=== PATIENT | male | born 1975 | race Caucasian/White ===

== ENCOUNTER 2022-11-11 00:59 | Observation (INO) ==
[2022-11-11] MEDS ORDERED: SODIUM CHLORIDE 0.9% 1000ML 1,000 ML IV ONE (01:12)
[2022-11-11] MEDS ORDERED: ASPIRIN CHEW 324 MG PO STA (01:16)
--- NOTE | 2022-11-11 01:16 | Emergency Department Note ---
History of Present Illness General Chief complaint: Chest Pain Stated complaint: CHEST PAIN Time Seen by Provider: 11/11/22 01:07 History of Present Illness Maximum Pain Intensity: 2 47-year-old male presents emergency department states a sudden onset of chest pressure and tightness on the left side of his chest that radiated to his left arm while at rest. Patient states he had not slept since 430 yesterday morning. Patient does admit to having 3 beers this evening. Patient's significant other states that he appeared to not be the evening. Patient denies cardiac history denies hypertension, states that he feels generally fatigued currently. Patient denies pleuritic chest pain denies hemoptysis denies recent fever denies cough cold congestion symptoms. Home Medications Medication Instructions Recorded Confirmed Type No Known Home Medications 11/11/22 11/11/22 History Allergies Allergy/AdvReac Type Severity Reaction Status Date / Time prednisone AdvReac Severe HEART RACES Verified 11/11/22 01:44 Past Med/Surg History Medical History No pertinent past medical history Social History Smoking Status: Never smoker Preferred Language: Sinhala Feels Safe at Home: Yes Immunizations: Past medical history denies; social history positive for alcohol Review of Systems A total of 10 systems reviewed and were otherwise negative Cardiovascular: + chest pain Gastrointestinal: no abdominal pain Physical Exam Vital Signs Vital Signs - 24 hr 11/11/22 01:04 11/11/22 00:59 11/11/22 01:07 Temperature 36.7 C Temperature Source Temporal Artery Scan Pulse Rate 127 H 122 H Pulse Rate from SpO2 Sensor Respiratory Rate 18 22 Respiratory Effort / Characteristics Non-Labored Spontaneous Respiratory Depth Normal Respiratory Pattern Regular Blood Pressure 182/121 H Blood Pressure Mean 141 Pulse Oximetry 96 95 96 Oxygen Delivery Method Room Air Room Air Room Air Sepsis Recent Fever Within 48 Hours No Sepsis New/Unexplained Change in Mental Status No Sepsis Action Taken by Nursing No Action Required 11/11/22 01:13 11/11/22 01:30 11/11/22 01:37 Temperature Temperature Source Pulse Rate 128 H 120 H 122 H Pulse Rate from SpO2 Sensor 128 H 121 H 123 H Respiratory Rate 22 12 22 Respiratory Effort / Characteristics Respiratory Depth Respiratory Pattern Blood Pressure 207/113 H 179/101 H 188/115 H Blood Pressure Mean 144 127 139 Pulse Oximetry 95 96 95 Oxygen Delivery Method Sepsis Recent Fever Within 48 Hours Sepsis New/Unexplained Change in Mental Status Sepsis Action Taken by Nursing 11/11/22 02:00 11/11/22 02:10 11/11/22 02:20 Temperature Temperature Source Pulse Rate 119 H 116 H 113 H Pulse Rate from SpO2 Sensor 119 H 116 H 112 H Respiratory Rate 20 21 20 Respiratory Effort / Characteristics Respiratory Depth Respiratory Pattern Blood Pressure 177/95 H Blood Pressure Mean 122 Pulse Oximetry 95 94 95 Oxygen Delivery Method Sepsis Recent Fever Within 48 Hours Sepsis New/Unexplained Change in Mental Status Sepsis Action Taken by Nursing 11/11/22 02:30 11/11/22 03:10 Temperature Temperature Source Pulse Rate 115 H 113 H Pulse Rate from SpO2 Sensor 115 H 114 H Respiratory Rate 22 8 L Respiratory Effort / Characteristics Respiratory Depth Respiratory Pattern Blood Pressure 150/100 H 176/114 H Blood Pressure Mean 116 134 Pulse Oximetry 96 94 Oxygen Delivery Method Sepsis Recent Fever Within 48 Hours Sepsis New/Unexplained Change in Mental Status Sepsis Action Taken by Nursing GENERAL: Patient is awake alert in no acute distress patient is resting comfortably and showing no signs of anxiety EYES: The conjunctivae are clear. The pupils are round and reactive. EARS, NOSE, MOUTH AND THROAT: The nose is without any evidence of any deformity. Mucous membranes are moist. Tongue is midline. NECK: The neck is nontender and supple. RESPIRATORY: Normal respiratory effort is noted there is no evidence of wheezing rhonchi or rales CARDIOVASCULAR: Tachycardic GASTROINTESTINAL: The abdomen is soft. Abdomen is nontender. BACK: No midline tenderness or or step-off noted range of motion in flexion extension as well as rotation no signs of muscle spasm noted MUSCULOSKELETAL/EXTREMITIES: There is no evidence of gross deformity full range of motion is noted in the hips and shoulders. SKIN: There is no obvious evidence of any rash. There are no petechiae, pallor or cyanosis noted. Mild diaphoresis present NEUROLOGIC: Patient is awake alert and oriented x3 strength is symmetric patellar reflexes are 2+ bilaterally PSYCH: Normal affect Course Reevaluation(s) Reevaluation #1: Patient started on IV fluids, patient remains tachycardic and hypertensive, patient was given IV hydralazine, aspirin Time: 03:05 Consultations Consultation #1: Case was discussed with the [facility] hospitalist for admission for h ypertension and chest pain Time: 03:39 Administered Medications Discontinued Medications Aspirin (Aspirin Chew 324 Mg) 324 mg PO NOW STA Stop: 11/11/22 01:17 Last Admin: 11/11/22 01:41 Dose: Not Given Documented By: JANNET Hydralazine HCl (Hydralazine Hcl 20 Mg/Ml Vial) 10 mg IV NOW STA Stop: 11/11/22 02:58 Last Admin: 11/11/22 03:15 Dose: 10 mg Documented By: JANNET Sodium Chloride (Nss 1000ml) 1,000 mls @ 999 mls/hr IV .Q1H1M ONE Stop: 11/11/22 02:12 Last Infusion: 11/11/22 03:10 Dose: 0 mls/hr Documented By: Admin: 11/11/22 01:40 Dose: 999 mls/hr Documented By: JANNET Critical Care Time Critical Care Time: Yes Total Critical Care Time: 35 I have personally spent greater than 35 minutes of critical care time in the direct management of this patient. This includes bedside care, interpretation of diagnostic studies, and testing, discussion with consultants, patient, and family members, and other required patient management activities. These minutes are in excess of all separately billable procedures. Medical Decision Making Medical Records Attestation: I reviewed the patient's medical records. Home Medications Current Medication List: was personally reviewed by me Laboratory Data Attestation: I reviewed the patient's lab results. Patient's labs are unremarkable 11/11/22 01:18 11/11/22 01:18 Lab Results 11/11/22 11/11/22 11/11/22 Range/Units 01:18 01:18 01:18 WBC 8.32 (4.8-10.8) K/ul RBC 5.37 (4.70-6.10) M/uL Hgb 17.6 (14.0-18.0) g/dl Hct 46.7 (42.0-52.0) % MCV 87.0 (80.0-100.0) fL MCH 32.8 (25.0-34.0) pg MCHC 37.7 H (32.0-36.0) g/dL RDW Std Deviation 39.0 (36.4-46.3) fL RDW Coeff of Gopi 12.4 (11.5-14.5) % Plt Count 236 (130-400) K/uL MPV 9.8 (9.4-12.4) fL Immature Gran % (Auto) 0.7 % Neut % (Auto) 46.8 % Lymph % (Auto) 33.1 % [place] % (Auto) 10.0 % Eos % (Auto) 8.4 % Baso % (Auto) 1.0 % Neut # (Auto) 3.90 (1.40-6.50) K/uL Lymph # (Auto) 2.75 (1.2-3.4) K/uL [place] # (Auto) 0.83 H (0.11-0.59) K/uL Eos # (Auto) 0.70 H (0-0.50) K/uL Baso # (Auto) 0.08 (0-0.2) K/uL Immature Gran # (Auto) 0.06 (0.01-0.20) K/uL PT 9.8 (9.0-12.0) Seconds INR 0.9 (0.9-1.1) APTT 24.8 (21.0-31.0) Seconds PTT Ratio 0.9 D-Dimer (0-500) ug/L FEU Sodium 135 L (136-145) mmol/L Potassium TNP Chloride 100 (98-107) mmol/L Carbon Dioxide 24 (21-32) mmol/L Anion Gap 11 (3-11) BUN 25 H (6-23) mg/dl Creatinine 1.30 (0.6-1.4) mg/dl Est Cr Clr Drug Dosing 71.4 ml/min Est GFR ( Amer) 75.3 ml/min Est GFR (Non-Af Amer) 65.0 ml/min BUN/Creatinine Ratio 19.2 (10-20) Glucose 121 H (70-99(Fasting)) mg/dl Calcium 9.4 (8.5-10.1) mg/dl Total Bilirubin 0.6 (0.2-1.0) mg/dl AST TNP ALT 47 (7-52) U/L Alkaline Phosphatase 48 (34-104) U/L Troponin I High Sens 4.8 (0-20) pg/ml Total Protein 8.4 H (6.0-8.3) gm/dl Albumin 4.7 (3.4-5.0) gm/dl Globulin 3.7 (2.5-4.0) gm/dl Albumin/Globulin Ratio 1.3 (0.9-2) Ethyl Alcohol mg/dL (<10.0) mg/dl SARS-CoV-2, RNA, NAAT (NEGATIVE) 11/11/22 11/11/22 11/11/22 Range/Units 01:18 01:18 02:58 WBC (4.8-10.8) K/ul RBC (4.70-6.10) M/uL Hgb (14.0-18.0) g/dl Hct (42.0-52.0) % MCV (80.0-100.0) fL MCH (25.0-34.0) pg MCHC (32.0-36.0) g/dL RDW Std Deviation (36.4-46.3) fL RDW Coeff of Gopi (11.5-14.5) % Plt Count (130-400) K/uL MPV (9.4-12.4) fL Immature Gran % (Auto) % Neut % (Auto) % Lymph % (Auto) % [place] % (Auto) % Eos % (Auto) % Baso % (Auto) % Neut # (Auto) (1.40-6.50) K/uL Lymph # (Auto) (1.2-3.4) K/uL [place] # (Auto) (0.11-0.59) K/uL Eos # (Auto) (0-0.50) K/uL Baso # (Auto) (0-0.2) K/uL Immature Gran # (Auto) (0.01-0.20) K/uL PT (9.0-12.0) Seconds INR (0.9-1.1) APTT (21.0-31.0) Seconds PTT Ratio D-Dimer < 190 (0-500) ug/L FEU Sodium (136-145) mmol/L Potassium Cancelled Chloride (98-107) mmol/L Carbon Dioxide (21-32) mmol/L Anion Gap (3-11) BUN (6-23) mg/dl Creatinine (0.6-1.4) mg/dl Est Cr Clr Drug Dosing ml/min Est GFR ( Amer) ml/min Est GFR (Non-Af Amer) ml/min BUN/Creatinine Ratio (10-20) Glucose (70-99(Fasting)) mg/dl Calcium (8.5-10.1) mg/dl Total Bilirubin (0.2-1.0) mg/dl AST Cancelled ALT (7-52) U/L Alkaline Phosphatase (34-104) U/L Troponin I High Sens (0-20) pg/ml Total Protein (6.0-8.3) gm/dl Albumin (3.4-5.0) gm/dl Globulin (2.5-4.0) gm/dl Albumin/Globulin Ratio (0.9-2) Ethyl Alcohol mg/dL < 10.0 (<10.0) mg/dl SARS-CoV-2, RNA, NAAT (NEGATIVE) 11/11/22 Range/Units 03:20 WBC (4.8-10.8) K/ul RBC (4.70-6.10) M/uL Hgb (14.0-18.0) g/dl Hct (42.0-52.0) % MCV (80.0-100.0) fL MCH (25.0-34.0) pg MCHC (32.0-36.0) g/dL RDW Std Deviation (36.4-46.3) fL RDW Coeff of Gopi (11.5-14.5) % Plt Count (130-400) K/uL MPV (9.4-12.4) fL Immature Gran % (Auto) % Neut % (Auto) % Lymph % (Auto) % [place] % (Auto) % Eos % (Auto) % Baso % (Auto) % Neut # (Auto) (1.40-6.50) K/uL Lymph # (Auto) (1.2-3.4) K/uL [place] # (Auto) (0.11-0.59) K/uL Eos # (Auto) (0-0.50) K/uL Baso # (Auto) (0-0.2) K/uL Immature Gran # (Auto) (0.01-0.20) K/uL PT (9.0-12.0) Seconds INR (0.9-1.1) APTT (21.0-31.0) Seconds PTT Ratio D-Dimer (0-500) ug/L FEU Sodium (136-145) mmol/L Potassium Chloride (98-107) mmol/L Carbon Dioxide (21-32) mmol/L Anion Gap (3-11) BUN (6-23) mg/dl Creatinine (0.6-1.4) mg/dl Est Cr Clr Drug Dosing ml/min Est GFR ( Amer) ml/min Est GFR (Non-Af Amer) ml/min BUN/Creatinine Ratio (10-20) Glucose (70-99(Fasting)) mg/dl Calcium (8.5-10.1) mg/dl Total Bilirubin (0.2-1.0) mg/dl AST ALT (7-52) U/L Alkaline Phosphatase (34-104) U/L Troponin I High Sens (0-20) pg/ml Total Protein (6.0-8.3) gm/dl Albumin (3.4-5.0) gm/dl Globulin (2.5-4.0) gm/dl Albumin/Globulin Ratio (0.9-2) Ethyl Alcohol mg/dL (<10.0) mg/dl SARS-CoV-2, RNA, NAAT NEGATIVE (NEGATIVE) Imaging Data Attestation: I personally reviewed and interpreted this imaging study as follows: My Impression: Chest x-ray interpreted by me negative for infiltrate normal mediastinum ECG Data Attestation: I personally reviewed and interpreted this ECG as follows: Additional Comments: EKG interpreted by me sinus tachycardia rate of 129 normal intervals normal axis poor R wave progression in the precordium. There is no obvious ST segment elevation or depression Blood Pressure Blood Pressure Findings: Elevated blood pressure MDM Narrative Medical decision making differential diagnosis includes angina, unstable angina, acute coronary syndrome, acute DE, dehydration, electrolyte abnormality Plan is to check labs, EKG, give IV fluids, asa Patient's EKG is nonischemic but tachycardic, patient's labs are unremarkable, patient remained hypertensive, patient was given IV hydralazine, patient will be admitted for chest pain with hypertension Heart score is moderate Case was discussed with the [facility] hospitalist for admission due to high risk due to hypertension and chest pain Impression & Plan Chest pain, Hypertensive urgency Discharge Plan Visit Data Chief Complaint: Chest Pain Stated Complaint: CHEST PAIN ED Provider: Clare,Tank M. Discharge Problem: Chest pain, Hypertensive urgency Patient Disposition: Admitted As Inpatient Forms Stand Alone Forms: [facility] Prescriptions Prescriptions: No Action No Known Home Medications Referrals Referrals: Cole Piña MD [Primary Care Provider] -
[2022-11-11 01:39] LABS: Basophils # (auto) 0.08 K/uL (0-0.2); Eosinophils % (auto) 8.4 %; Hematocrit (blood only) 46.7 % (42.0-52.0); Hemoglobin 17.6 g/dl (14.0-18.0); Immature Granulocytes # (auto) 0.06 K/uL (0.01-0.20); Immature Granulocytes % (auto) 0.7 %; Lymphocytes # (auto) 2.75 K/uL (1.2-3.4); Lymphocytes % (auto) 33.1 %; Mean Corpuscular Hemoglobin 32.8 pg (25.0-34.0); Mean Corpuscular Hgb Conc 37.7 g/dL (32.0-36.0); Mean Platelet Volume 9.8 fL (9.4-12.4); Monocytes # (auto) 0.83 K/uL (0.11-0.59); Neutrophils % (auto) 46.8 %; Platelet Count 236 K/uL (130-400); RDW Coefficient of Variation 12.4 % (11.5-14.5); Red Blood Count 5.37 M/uL (4.70-6.10); White Blood Count 8.32 K/ul (4.8-10.8)
[2022-11-11 02:45] LABS: Alanine Aminotransferase 47 U/L (7-52); Albumin Globulin Ratio 1.3 (0.9-2); Albumin Level 4.7 gm/dl (3.4-5.0); Alkaline Phosphatase 48 U/L (34-104); Anion Gap 11 (3-11); BUN Creatinine Ratio 19.2 (10-20); Bilirubin,Total 0.6 mg/dl (0.2-1.0); Blood Urea Nitrogen 25 mg/dl (6-23); Calcium 9.4 mg/dl (8.5-10.1); Carbon Dioxide 24 mmol/L (21-32); Chloride 100 mmol/L (98-107); Creatinine Clr Calc Pharmacy 71.4 ml/min; Est GFR (African American) 75.3 ml/min; Globulin 3.7 gm/dl (2.5-4.0); Glucose 121 mg/dl (70-99(Fasting)); Sodium 135 mmol/L (136-145); Total Protein 8.4 gm/dl (6.0-8.3); Troponin I High Sensitivity 4.8 pg/ml (0-20)
[2022-11-11 02:48] LABS: INR 0.9 (0.9-1.1); Partial Thromboplastin Ratio 0.9; Partial Thromboplastin Time 24.8 Seconds (21.0-31.0); Prothrombin Time 9.8 Seconds (9.0-12.0)
[2022-11-11] MEDS ORDERED: hydrALAZINE HCL 20 MG/ML VIAL IV STA (02:57)
[2022-11-11 03:36] LABS: D Dimer < 190 ug/L FEU (0-500)
--- NOTE | 2022-11-11 03:36 | History & Physical Report ---
Date of Service November 11, 2022 Assessment & Plan (1) Chest pain: Plan: 47-year-old male with no significant past medical history presenting with episode of substernal chest tightness associated with tachycardia and elevated blood pressure. Symptoms have since resolved. Patient does report he feels anxious at present. States he does not have a diagnosis of hypertension although his blood pressure has been high on previous readings. He is active with no exertional symptoms Observation to medical with telemetry EKG Repeat troponin Lipid panel and hemoglobin A1c with next blood draw (2) Hypertensive urgency: Plan: Patient with elevated blood pressure. Asymptomatic. Improved after hydralazine 10 mg IV x1 dose. Etiology unclear. Monitor blood pressure if persistently elevated will need to initiate medications Check TSH, lipid panel and hemoglobin A1c (3) Tachycardia: Plan: Sinus tachycardia. Patient does report feeling anxious. Pain has resolved, he is saturating well on room air, no anemia Check TSH Fluid administered Hydroxyzine as needed for anxiety Continue to monitor History of Present Illness Chief Complaint: Chest pressure Primary Care Provider: Cole Piña MD Ryan Black is a 48-year-old male with no significant past medical history presenting with episode of chest tightness. At midnight tonight patient was trying to go to sleep when he became flushed and warm. He developed palpitations in the chest as well as substernal chest tightness and diaphoresis. He denies shortness of breath, abdominal pain, nausea, vomiting. Denies back pain, headache, visual change, focal numbness or weakness. He feels very anxious now. Patient did drink 2-3 alcoholic beverages tonight. He also ate dinner at [employer] He said that he had some chips that were very salty. He does state that he is very sensitive to salt. Had a similar feeling of chest tightness and flushing after eating at [employer] in the past. In the ER patient tachycardic and hypertensive with heart rate 120s, blood pressure ranging [id number] ER course: Hydralazine 10 mg IV Normal saline x1 L Allergies Allergy/AdvReac Type Severity Reaction Status Date / Time prednisone AdvReac Severe HEART RACES Verified 11/11/22 01:44 Home Medications Medication Instructions Recorded Confirmed Type No Known Home Medications 11/11/22 11/11/22 History Past Med/Surg History Medical History (Updated 11/11/22 @ 04:54 by Joie Terrazas DO) No pertinent past medical history Surgical History (Updated 11/11/22 @ 04:50 by Joie Terrazas DO) History of shoulder surgery Family History (Updated 11/11/22 @ 04:50 by Joie Terrazas DO) Other Cancer Social History (Updated 11/11/22 @ 04:50 by Joie Terrazas DO) Smoking Status: Never smoker Hx Alcohol Use: Yes Alcohol type: beer Hx Substance Use: No Preferred Language: Upper Sorbian Communication Ability: Effective Gang Punch Operator Required: No Beliefs That Will Affect Care: None Current Living Situation: Spouse and Family Other Information That Helps Us Care for You: No Feels Safe at Home: Yes Safety Concerns: Feels Safe At This Time Assistive Devices: None Review of Systems Review of Systems: All systems reviewed & are unremarkable except as noted in HPI & below Physical Exam Physical Exam: General: patient anxious, NAD, non-toxic in appearance, AA&O x 4 Skin: warm, dry, intact, no rashes or lesions HEENT: NC/AT, PERRL, EOMI, anicteric sclera, conjunctiva without injection, external ear normal to inspection and nontender, nares patent, moist mucus membranes, dentition intact, no oropharyngeal lesions, neck supple, trachea midline, no LAD, no thyromegaly, no JVD Heart: +S1/S2, regular, tachycardic no m/r/g Lungs: equal air entry bilaterally, no rales/rhonchi/wheezes Abd: +BS, soft, NT/ND, no masses/organomegaly/ascites Ext: warm, 2+ pulses in UE/LE bilaterally, no clubbing/cyanosis or edema Neuro: nonfocal, patient AA&O x 4, speech intact, no facial droop, moving all extremities on command with equal strength 5/5 Results & Data Results & Data ([facility]) Vital Signs (Past 12 Hours) Vital Signs Temp Pulse Resp BP Pulse Ox O2 Del Method 11/11/22 03:10 113 H 8 L 176/114 H 94 11/11/22 02:30 115 H 22 150/100 H 96 11/11/22 02:20 113 H 20 95 11/11/22 02:10 116 H 21 94 11/11/22 02:00 119 H 20 177/95 H 95 11/11/22 01:37 122 H 22 188/115 H 95 11/11/22 01:30 120 H 12 179/101 H 96 11/11/22 01:13 128 H 22 207/113 H 95 11/11/22 01:07 122 H 22 96 Room Air 11/11/22 00:59 95 Room Air 11/11/22 01:04 36.7 C 127 H 18 182/121 H 96 Room Air Laboratory Results Laboratory Results WBC 8.32 K/ul (4.8-10.8) 11/11/22 01:18 RBC 5.37 M/uL (4.70-6.10) 11/11/22 01:18 Hgb 17.6 g/dl (14.0-18.0) 11/11/22 01:18 Hct 46.7 % (42.0-52.0) 11/11/22 01:18 MCV 87.0 fL (80.0-100.0) 11/11/22 01:18 MCH 32.8 pg (25.0-34.0) 11/11/22 01:18 MCHC 37.7 g/dL (32.0-36.0) H 11/11/22 01:18 RDW Std Deviation 39.0 fL (36.4-46.3) 11/11/22 01:18 RDW Coeff of Gopi 12.4 % (11.5-14.5) 11/11/22 01:18 Plt Count 236 K/uL (130-400) 11/11/22 01:18 MPV 9.8 fL (9.4-12.4) 11/11/22 01:18 Immature Gran % (Auto) 0.7 % 11/11/22 01:18 Neut % (Auto) 46.8 % 11/11/22 01:18 Lymph % (Auto) 33.1 % 11/11/22 01:18 [place] % (Auto) 10.0 % 11/11/22 01:18 Eos % (Auto) 8.4 % 11/11/22 01:18 Baso % (Auto) 1.0 % 11/11/22 01:18 Neut # (Auto) 3.90 K/uL (1.40-6.50) 11/11/22 01:18 Lymph # (Auto) 2.75 K/uL (1.2-3.4) 11/11/22 01:18 [place] # (Auto) 0.83 K/uL (0.11-0.59) H 11/11/22 01:18 Eos # (Auto) 0.70 K/uL (0-0.50) H 11/11/22 01:18 Baso # (Auto) 0.08 K/uL (0-0.2) 11/11/22 01:18 Immature Gran # (Auto) 0.06 K/uL (0.01-0.20) 11/11/22 01:18 PT 9.8 Seconds (9.0-12.0) 11/11/22 01:18 INR 0.9 (0.9-1.1) 11/11/22 01:18 APTT 24.8 Seconds (21.0-31.0) 11/11/22 01:18 PTT Ratio 0.9 11/11/22 01:18 D-Dimer < 190 ug/L FEU (0-500) 11/11/22 01:18 Sodium 135 mmol/L (136-145) L 11/11/22 01:18 Potassium Cancelled 11/11/22 02:58 Chloride 100 mmol/L (98-107) 11/11/22 01:18 Carbon Dioxide 24 mmol/L (21-32) 11/11/22 01:18 Anion Gap 11 (3-11) 11/11/22 01:18 BUN 25 mg/dl (6-23) H 11/11/22 01:18 Creatinine 1.30 mg/dl (0.6-1.4) 11/11/22 01:18 Est Cr Clr Drug Dosing 71.4 ml/min 11/11/22 01:18 Est GFR ( Amer) 75.3 ml/min 11/11/22 01:18 Est GFR (Non-Af Amer) 65.0 ml/min 11/11/22 01:18 BUN/Creatinine Ratio 19.2 (10-20) 11/11/22 01:18 Glucose 121 mg/dl (70-99(Fasting)) H 11/11/22 01:18 Calcium 9.4 mg/dl (8.5-10.1) 11/11/22 01:18 Total Bilirubin 0.6 mg/dl (0.2-1.0) 11/11/22 01:18 AST Cancelled 11/11/22 02:58 ALT 47 U/L (7-52) 11/11/22 01:18 Alkaline Phosphatase 48 U/L (34-104) 11/11/22 01:18 Troponin I High Sens 4.8 pg/ml (0-20) 11/11/22 01:18 Total Protein 8.4 gm/dl (6.0-8.3) H 11/11/22 01:18 Albumin 4.7 gm/dl (3.4-5.0) 11/11/22 01:18 Globulin 3.7 gm/dl (2.5-4.0) 11/11/22 01:18 Albumin/Globulin Ratio 1.3 (0.9-2) 11/11/22 01:18 Ethyl Alcohol mg/dL < 10.0 mg/dl (<10.0) 11/11/22 01:18 SARS-CoV-2, RNA, NAAT NEGATIVE (NEGATIVE) 11/11/22 03:20 Diagnostic Findings Chest x-rayby my interpretation. Poor inspiratory film, no obvious infiltrate or edema Code Status & VTE Plan VTE Prophylaxis Plan VTE Prophylaxis will be ordered: Yes PG Care Time/CCT Total # of Minutes Spent Total Time Spent with Patient: Total time spent is greater than 50% in coordination of care (as documented) at patient's floor/unit and/or counseling patient: Coding Level of Care Code 59575 INT INP/OBS CARE 2/55MIN Diagnoses Chest pain R07.9 Hypertensive urgency I16.0 Tachycardia R00.0
[2022-11-11] MEDS ORDERED: hydrOXYzine HCl 25 MG TAB PO PRN (04:39)
[2022-11-11] MEDS ORDERED: ACETAMINOPHEN 325 MG TAB PO PRN (04:39)
[2022-11-11] MEDS ORDERED: cloNIDine HCL 0.1 MG TAB PO ONE (05:06)
[2022-11-11 05:08] LABS: Potassium 4.6 mmol/L (3.5-5.1)
[2022-11-11 06:13] LABS: Chol HDL Ratio 6.7 (0-5); Cholesterol 282 mg/dl (0-200); HDL Cholesterol 42 mg/dl; LDL Cholesterol Calculated 170 mg/dl; Triglycerides 351 mg/dl (0-150); Troponin I High Sensitivity 4.8 pg/ml (0-20); VLDL Cholesterol 70 mg/dl (0-30)
--- NOTE | 2022-11-11 06:58 | XRay Report ---
XR chest 1V portable HISTORY: Chest pain, nonspecific COMPARISON: Chest 09/14/2021. FINDINGS: The lungs are clear. Cardiac silhouette is normal in size. No pleural effusions. No pneumot horax. IMPRESSION: No acute process. ACT 112: Negative or not required by law. Electronically signed by: Harshad Bishop M.D. 11/11/2022 6:57 AM
[2022-11-11] MEDS ORDERED: SODIUM PHOSPHATE 3 MMOL/1 ML INFUSION IV STA (08:16)
[2022-11-11] MEDS ORDERED: SODIUM PHOSPHATE 9 MMOL in SODIUM CHLORIDE 0.9% 250 ML IV ONE (08:30)
--- NOTE | 2022-11-11 14:03 | XCELERA ---
[id number]
--- NOTE | 2022-11-11 15:39 | Discharge Summary ---
Date of Service November 11, 2022 Admission HPI Per Admitting Provider Ryan Black is a 48-year-old male with no significant past medical history presenting with episode of chest tightness. At midnight tonight patient was trying to go to sleep when he became flushed and warm. He developed palpitations in the chest as well as substernal chest tightness and diaphoresis. He denies shortness of breath, abdominal pain, nausea, vomiting. Denies back pain, headache, visual change, focal numbness or weakness. He feels very anxious now. Patient did drink 2-3 alcoholic beverages tonight. He also ate dinner at [employer]. He said that he had some chips that were very salty. He does state that he is very sensitive to salt. Had a similar feeling of chest tightness and flushing after eating at [employer] in the past. In the ER patient tachycardic and hypertensive with heart rate 120s, blood pressure ranging [id number] ER course: Hydralazine 10 mg IV Normal saline x1 L Principal Diagnosis Hypertensive urgency Chest pain Sinus tachycardia Discharge Exam Vitals reviewed Gen: [AAOx3, NAD,obese] HEENT: [anicteric sclerae, EOMI] CV: [Reg rhythm, mild tachycardia in low 100s no mgr nl S1S2] Pulm: [CTAB no wcr] Abd: [+BS soft NT ND no masses or hernias] Ext: [no edema, 2+ DP pulses] Skin: [no rashes, warm/dry] Neuro: [full strength throughout] Discharge Data Allergies Allergy/AdvReac Type Severity Reaction Status Date / Time prednisone AdvReac Severe HEART RACES Verified 11/11/22 01:44 Consultations 11/11/22 03:31 ED Decision to Admit Stat Hospital Course (1) Chest pain: 47-year-old male with a h/o Meniere's disease presenting with episode of substernal chest tightness associated with tachycardia and elevated blood pressure,flushing that came on at rest while lying in bed. The chest tightness lasted about an hour and the palpitations lasted about 4-5 hours. BP was significantly elevated on arrival to the ER with BP at 207/113. He had sinus tachycardia in the 120s. States he does not have a diagnosis of hypertension although his blood pressure has been high on previous readings. 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 He does not know his baseline BP or heart rate. Troponin was serially negative x 3. D-dimer normal. BPs improved with IV hydralazine but remained elevated in the 140s-150s/90s ECHO with mild-mod LVH, normal EF, no valvular disease ECG with sinus tachycardia, no ischemic changes Pulse ox normal Hgb normal TSH normal at 1.1 Tele with NSR and ST with rates improving to 90-100s on discharge Chest pain likely noncardiac-possibly GI related--> start 2 weeks of Protonix Chest pain likely triggered pre-existing HTN to be exacerbated due to anxiety -treat HTN as below -no exertional angina -does have significantly elevated lipids -advised healthy lifestyle changes -consider outpatient stress test with PCP (2) Hypertensive urgency: As above start metoprolol succinate 25mg po qhs follow BPs at home with home BP cuff-advised to buy one today at drug store (3) Tachycardia: Sinus tachycardia. Patient does report feeling anxious. Pain has resolved, he is saturating well on room air, no anemia TSH normal Fluid administered Hydroxyzine as needed for anxiety helped x 1 dose -starting metoprolol as above -follow as outpatient (4) HTN (hypertension), benign: as above (5) Hyperlipidemia: TChol 282, LDL 170, HDL 42, TG 351 Pt wishes to trial lifestyle and dietary changes, weight loss first before starting on a statin drug f/u with PCP (6) Obesity (BMI 30-39.9): BMI 36.7 advised weight loss Plan Dispo-medically stable for dc to home today. Advised close f/u with PCP. Discussed all care with at bedside Total Time Total Time Spent Total Time Spent (In Minutes): 35 min Discharge Plan Discharge Items Patient Disposition: Home - Self-Care Reason For Visit: TACHYCARDIA, HYPERTENSION Discharge Diagnosis: Hypertensive urgency, Chest pain Sinus tachycardia High cholesteol Condition on Discharge: Good Activity: Resume your previous activity Non-emergency contact: Primary Care Provider Call non-emergency contact if: you have any medication questions and your symptoms worsen Follow-up/Referrals: Cole Piña MD [Primary Care Provider] - (Follow up within 1-2 weeks.) Diet: Heart Healthy Diet Comment: Consider a "Mediterranean Diet" Addtl Attending Provider Instructions: You were admitted with chest pain, high blood pressures, and a fast heart rate called sinus tachycardia. This improved with medication to lower your blood pressure. You had testing to show you did NOT have a heart attack.Your echocardiogram (ultrasound of the heart) did show some mild-moderate thickening of the left ventricle (chamber) which indicates uncontrolled high blood pressure over time. You were started on a blood pressure medicine called metoprolol 25mg once daily. Tis will lower blood pressure and heart rate. As we discussed, it is important to increase your exercise level, eat a low sodium diet, and lose weight. Your ideal weight to lose initially over the next few months would be about 20 lbs. Your cholesterol levels were also quite high. As we discussed, you should work on dietary changes and weight loss first. If your cholesterol is not improving with these changes, you should talk to your doctor about starting on a cholesterol lowering medicine. The chest pain may have been related to acid reflux. You should take a 2 week course of Protonix once daily to see if this keeps the pain from coming back. Pending Studies at Discharge: No Stand-Alone Forms: My [facility] Medications and DC Order Prescriptions: New metoprolol succinate [Toprol XL] 25 mg tablet extended release 24 hr 25 mg PO HS Qty: 30 0RF pantoprazole [Protonix] 40 mg tablet,delayed release (DR/EC) 40 mg PO QAM Qty: 14 0RF Discharge Orders: Discharge Order (Routine); Ordered 11/11/22 Ordered By: Rossy Arellano Admission Data Admit Date/Time: 11/11/22 03:36 Attending Provider: Rossy Arellano Admit Provider: Joie Terrazas Primary Care Provider: Cole Piña Other Providers: Joie Terrazas Coding Level of Care Code HOSP INP/OBS DISCH >30 MIN Diagnoses Chest pain R07.9 Hypertensive urgency I16.0 Tachycardia R00.0 HTN (hypertension), benign I10 Hyperlipidemia E78.5 Obesity (BMI 30-39.9) E66.9
--- NOTE | 2022-11-12 06:02 | Electrocardiogram Report ---
Test Reason : Blood Pressure : / mmHG Vent. Rate : 129 BPM Atrial Rate : 129 BPM P-R Int : 160 ms QRS Dur : 096 ms QT Int : 280 ms P-R-T Axes : 032 029 -09 degrees QTc Int : 410 ms Sinus tachycardia Cannot rule out Inferior infarct , age undetermined Abnormal ECG When compared with ECG of 24-DEC-2005 10:54, No significant change was found Confirmed by Sukhi Duarte ([id number]) on 11/12/2022 6:02:06 AM Referred By: REFERRED SELF Confirmed By:Sukhi Duarte
--- NOTE | 2022-11-12 06:12 | Electrocardiogram Report ---
Test Reason : Blood Pressure : / mmHG Vent. Rate : 108 BPM Atrial Rate : 108 BPM P-R Int : 178 ms QRS Dur : 096 ms QT Int : 316 ms P-R-T Axes : 030 028 -05 degrees QTc Int : 423 ms Sinus tachycardia Inferior infarct (cited on or before 11-NOV-2022) Abnormal ECG When compared with ECG of 11-NOV-2022 01:10, No significant change was found Confirmed by Sukhi Duarte ([id number]) on 11/12/2022 6:12:45 AM Referred By: REFERRED SELF Confirmed By:Sukhi Duarte
== END 2022-11-11 16:14 | disposition home or self-care (01) ==
LOC: ED 00:59 → 2N 00:59 → SUATTDRO 03:36 → 2N 04:45